=== PATIENT | male | born 1990 | race African-American/Black ===

== ENCOUNTER 2016-09-18 13:46 | Emergency (ER) | payer SELFPAY ==
[~2016-09-18] VITALS: Ht 167.6 cm; Wt 65.0 kg
[2016-09-18] MEDS ORDERED: SODIUM CHLORIDE 0.9% 1,000 ML IV ONE (14:27)
[2016-09-18] MEDS ORDERED: FAMOTIDINE 20MG/2ML VIAL IV STA (14:27)
[2016-09-18] MEDS ORDERED: ONDANSETRON HCL 4MG/2ML VIAL IV STA (14:27)
[2016-09-18] MEDS ORDERED: MORPHINE SULFATE 4 MG/ML CPJ (NOT FOR IM USE) IV STA (14:27)
[2016-09-18 14:37] LABS: GLUCOSE URINE NEGATIVE (NEGATIVE); KETONES URINE 1+ (NEGATIVE); LEUKOCYTE ESTERASE URINE NEGATIVE (NEGATIVE); NITRITE URINE NEGATIVE (NEGATIVE); OCCULT BLOOD URINE NEGATIVE (NEGATIVE); PH URINE 5.5 (4.5-8.0); PROTEIN URINE 3+ (NEGATIVE); SPECIFIC GRAVITY URINE 1.044 (1.005-1.030); UROBILINOGEN URINE 0.2 E.U./dL (0.2-1.0)
[2016-09-18 14:40] LABS: CLARITY URINE HAZY (CLEAR); COLOR URINE YELLOW (YELLOW)
[2016-09-18 14:58] LABS: *AMPHETAMINES SCREEN URINE NEGATIVE (NEGATIVE); *BARBITURATES SCREEN URINE NEGATIVE (NEGATIVE); *BENZODIAZEPINES SCREEN URINE NEGATIVE (NEGATIVE); *COCAINE SCREEN URINE NEGATIVE (NEGATIVE); CANNABINOID URINE SCREEN NEGATIVE (NEGATIVE); METHADONE URINE SCREEN NEGATIVE (NEGATIVE); OPIATES URINE SCREEN NEGATIVE (NEGATIVE); PHENCYCLIDINE URINE SCREEN NEGATIVE (NEGATIVE)
[2016-09-18 15:00] LABS: BASOPHILS % 0.6 % (0.0-2.0); EOSINOPHILS % 0.5 % (0.0-5.0); HEMOGLOBIN. 17.3 g/dL (14.0-18.0); LYMPHOCYTES % 13.2 % (20.0-50.0); MEAN CORPUSCULAR HEMOGLOBIN 28.6 pg (28.0-32.0); MEAN CORPUSCULAR VOLUME 81.2 fL (80.0-94.0); MEAN PLATELET VOLUME 7.4 fl (7.4-10.4); NEUTROPHILS % 76.7 % (40.0-76.0); PLATELET 149 x1000/uL (130-400); RED BLOOD CELL COUNT 6.04 mill/uL (4.7-6.1)
[2016-09-18 15:09] LABS: CHLORIDE 99 mEq/L (98-107)
[2016-09-18 15:10] LABS: INR 1.1; PROTHROMBIN TIME 11.4 sec
[2016-09-18 15:17] LABS: CARBON DIOXIDE 25 mEq/L (21-32); ETHANOL BLOOD < 10 mg/dL; TROPONIN I < 0.02 ng/mL (0.00-0.04)
[2016-09-18 17:43] VITALS: BP 117/80
== END 2016-09-18 17:49 | disposition home or self-care (01) ==
LOC: ER 13:46
DX: R19.7 Diarrhea, unspecified (principal); R10.13 Epigastric pain; J45.909 Unspecified asthma, uncomplicated
CPT/HCPCS: 36415; 71010; 74176; 80053; 80305; 81001; 83690; 83880; 84484; 85025; 85610; 96361; 96374; 96375; 99285; G0482; J2270; J2405; J3490; J7030